=== PATIENT | female | born 1970 | race Caucasian/White ===

== ENCOUNTER → 2022-06-24 | Outpatient (CLI) | payer SELFPAY | LOC: RAD 12:53 | DX: S32.592A Other specified fracture of left pubis, initial encounter for closed fracture (principal); W11.XXXA Fall on and from ladder, initial encounter ==

== ENCOUNTER → 2023-05-12 | Outpatient (CLI) | payer OTHER ==
[2023-05-12 07:53] LABS: POTASSIUM 4.2 mmol/L (3.5-5.1)
[2023-05-12 07:54] LABS: ALBUMIN 4.4 g/dL (3.5-5.0)
[2023-05-12 07:55] LABS: CALCIUM 9.8 mg/dL (8.3-10.5)
[2023-05-12 07:56] LABS: TOTAL PROTEIN 7.5 g/dL (6.4-8.3)
[2023-05-12 07:58] LABS: TOTAL BILIRUBIN 0.5 mg/dL (0.2-1.2)
[2023-05-12 15:24] LABS: BASO # 0.02 K/mm3 (0.02-0.10); EOS # 0.19 K/mm3 (0.04-0.40); EOS % 4.1 % (1.0-5.0); HEMATOCRIT 43.4 % (37.0-47.0); HEMOGLOBIN 14.7 g/dL (12.5-16.0); LYMPH# 2.07 K/mm3 (1.50-4.00); MEAN CELL VOLUME 97 fl (78-100); MEAN CORPUSCULAR HEMOGLOBIN 33 pg (27-31); MEAN CORPUSCULAR HGB CONC 34 g/dL (33-37); MEAN PLATELET VOLUME 9.2 fl (7.4-10.4); MONO # 0.45 K/mm3 (0.20-0.80); NEU # 1.93 K/mm3 (1.40-6.50); PLATELET COUNT 242 K/mm3 (130-400); RED BLOOD COUNT 4.47 M/mm3 (4.10-5.30); RED CELL DISTRIBUTION WIDTH 11.4 % (11.5-14.5); WHITE BLOOD COUNT 4.7 K/mm3 (4.8-10.8)
== END ==
LOC: LAB 07:12
DX: K21.9 Gastro-esophageal reflux disease without esophagitis (principal); S32.010S Wedge compression fracture of first lumbar vertebra, sequela; Z86.39 Personal history of other endocrine, nutritional and metabolic disease; X58.XXXS Exposure to other specified factors, sequela